=== PATIENT | male | born 1980 | race Caucasian/White ===

== ENCOUNTER 2017-03-18 12:48 | Inpatient (IN) | payer OTHER ==
[2017-03-18] MEDS ORDERED: GEMFIBROZIL600 M2 PO (12:52)
[2017-03-18 13:53] LABS: BASO % 0.3 % (0-2); EOS % 0.5 % (0-7); EOSINOPHIL ABSOLUTE COUNT 0.1 tho/cmm (0.0-0.7); HCT-HEMATOCRIT 42.8 % (36.0-53.5); HGB-HEMOGLOBIN 16.2 gm/dl (13.5-17.0); IMMATURE GRANULOCYTES ABSOLUTE 0.05 tho/cmm (0-0.03); IMMATURE GRANULOCYTES PERCENT 0.4 % (0-0.3); LYMPH % 14.2 % (20-45); LYMPH ABSOLUTE COUNT 1.7 tho/cmm (0.8-4.5); MCH (MEAN CORPUSCULAR HGB) 33.5 pg (28.0-32.0); MCHC MEAN CORPUSCULAR HGB CONC 37.9 % (32.0-36.0); MCV (MEAN CELL VOLUME) 88.6 fl (82.0-96.0); MEAN PLATELET VOLUME 10.3 cmc (9.4-12.4); MONO % 4.6 % (0-12); MONOCYTE ABSOLUTE COUNT 0.6 tho/cmm (0.0-1.2); NEUTROPHIL ABSOLUTE COUNT 9.6 tho/cmm (1.6-8.0); NEUTROPHIL-AUTOMATED 9.6 tho/cmm (1.6-8.0); PLATELET COUNT 248 tho/cmm (150-450); RED BLOOD COUNT 4.83 mil/cmm (4.40-5.70); RED CELL DISTRIBUTION WIDTH 12.4 % (12.4-16.4)
[2017-03-18 14:56] LABS: SODIUM 138 mmol/L (135-145)
[2017-03-18 14:57] LABS: ALBUMIN 3.9 g/dl (3.5-5.0); ANION GAP 25 mmol/L (0-20); BLOOD UREA NITROGEN 17 mg/dl (6-24); CALCIUM 8.8 mg/dl (8.5-10.5); CARBON DIOXIDE-VENOUS 11 mmol/L (22-32); CHLORIDE 106 mmol/l (96-110); GLUCOSE 122 mg/dL (70-110); POTASSIUM 4.4 mmol/L (3.7-5.1)
[2017-03-18 14:58] LABS: ALT/SGPT 63 U/L (12-78)
[2017-03-18 14:59] LABS: ALB/GLOB RATIO 0.9 (0.8-2.0); ALKALINE PHOSPHATASE 87 U/L (33-138); AST/SGOT 47 U/L (10-40); BILIRUBIN,TOTAL 0.7 mg/dl (0.0-1.5); CREATININE 1.04 mg/dl (0.60-1.30); eGFR VALUE FOR BLACK >90 mL/Min
[2017-03-18 15:08] LABS: LIPASE 3283 U/L (73-393)
[2017-03-19 05:09] LABS: BASO % 0.1 % (0-2); EOS % 1.5 % (0-7); EOSINOPHIL ABSOLUTE COUNT 0.1 tho/cmm (0.0-0.7); HGB-HEMOGLOBIN 14.9 gm/dl (13.5-17.0); IMMATURE GRANULOCYTES ABSOLUTE 0.02 tho/cmm (0-0.03); IMMATURE GRANULOCYTES PERCENT 0.2 % (0-0.3); LYMPH % 19.1 % (20-45); LYMPH ABSOLUTE COUNT 1.8 tho/cmm (0.8-4.5); MCH (MEAN CORPUSCULAR HGB) 32.7 pg (28.0-32.0); MCHC MEAN CORPUSCULAR HGB CONC 36.3 % (32.0-36.0); MCV (MEAN CELL VOLUME) 89.9 fl (82.0-96.0); MEAN PLATELET VOLUME 10.4 cmc (9.4-12.4); MONO % 5.1 % (0-12); MONOCYTE ABSOLUTE COUNT 0.5 tho/cmm (0.0-1.2); PLATELET COUNT 213 tho/cmm (150-450); RED BLOOD COUNT 4.56 mil/cmm (4.40-5.70); RED CELL DISTRIBUTION WIDTH 12.6 % (12.4-16.4); WHITE BLOOD COUNT 9.5 tho/cmm (4.0-10.0)
[2017-03-19 11:21] LABS: ALB/GLOB RATIO 0.8 (0.8-2.0); ALBUMIN 3.5 g/dl (3.5-5.0); ALKALINE PHOSPHATASE 79 U/L (33-138); AMYLASE 53 U/L (20-90); BLOOD UREA NITROGEN 9 mg/dl (6-24); CALCIUM 8.5 mg/dl (8.5-10.5); CHLORIDE 105 mmol/l (96-110); CHOLESTEROL 234 mg/dl (120-200); CREATININE 0.91 mg/dl (0.60-1.30); GLUCOSE 96 mg/dL (70-110); HDL CHOLESTEROL 34 mg/dl (40-60); SODIUM 139 mmol/L (135-145); eGFR VALUE FOR BLACK >90 mL/Min
[2017-03-19 11:33] LABS: ANION GAP 18 mmol/L (0-20); AST/SGOT 24 U/L (10-40); BILIRUBIN,DIRECT <0.1 mg/dl (0.0-0.3); BILIRUBIN,INDIRECT 0.9 mg/dL (0.0-1.0); CARBON DIOXIDE-VENOUS 20 mmol/L (22-32); LIPASE 740 U/L (73-393); TRIGLYCERIDES 975 mg/dl (<149)
[2017-03-19 11:34] LABS: ALT/SGPT 43 U/L (12-78)
[2017-03-20 05:23] LABS: HGB-HEMOGLOBIN 14.3 gm/dl (13.5-17.0); PLATELET COUNT 199 tho/cmm (150-450)
[2017-03-20] MEDS ORDERED: NORCO 5-325 TA1 EACH PO (11:28)
[2017-03-20] MEDS ORDERED: TYLENOL325 M2 PO (11:36)
== END 2017-03-20 12:40 | DRG 439 ==
LOC: EDMED 12:48 → EMR2 17:27 → 5WE 17:31
PROVIDERS: Nurse Practitioner Acute Care; Physician Assistant; ADMIT Hospitalist
DX: K86.1 Other chronic pancreatitis (principal); F17.213 Nicotine dependence, cigarettes, with withdrawal; E78.1 Pure hyperglyceridemia; E78.5 Hyperlipidemia, unspecified; Z72.89 Other problems related to lifestyle
CPT/HCPCS: C9113; G0480; J1170; J1650; J2270; J2405; J7030; Q9967